=== PATIENT | female | born 1970 | race Caucasian/White ===

== ENCOUNTER 2024-04-20 09:19 | Day surgery (SDC) | payer OTHER ==
[~2024-04-20 09:19] MED LIST: Clindamycin in 0.9 % Sod Chlor 900 MG in Premix Bag 1 BAG IV SCH; EPINEPHrine 1 MG/ML 30 ML MDV IRR SCH; Lactated Ringers 1,000 ML IV SCH; Lidocaine 1%/Sod Bicarbonate in NS 8.4% 1 ML Syringe IDERM PRN; Sodium Chloride 0.9% 10 ML Syringe FLUSH PRN; Sodium Chloride 0.9% 10 ML Syringe FLUSH SCH
[2024-04-20] MEDS ORDERED: Sodium Chloride 0.9% 10 ML Syringe FLUSH SCH (09:30)
[2024-04-20] MEDS: Lactated Ringers 1,000 ML IV SCH (09:50)
[2024-04-20] MEDS ORDERED: Midazolam 1 MG/ML 2 ML SDV ONE (10:53)
[2024-04-20] MEDS ORDERED: Dexamethasone 4 MG/ML 5 ML MDV ONE (10:53)
[2024-04-20] MEDS ORDERED: Ondansetron 4 MG/2 ML SDV ONE (10:53)
[2024-04-20] MEDS ORDERED: Lidocaine 1% 5 ML VIAL ONE (10:53)
[2024-04-20] MEDS ORDERED: Propofol 200 MG/20 ML SDV ONE ×2 (10:53→12:00)
[2024-04-20] MEDS ORDERED: fentaNYL 250 MCG/5 ML SDV ONE (10:53)
[2024-04-20] MEDS ORDERED: EPINEPHrine 1 MG/ML SDV ONE (11:26)
[2024-04-20] MEDS ORDERED: Bupivacaine 0.25% 10 ML SDV ONE (12:02)
[2024-04-20] MEDS ORDERED: Lactated Ringers 1,000 ML ONE (12:02)
[2024-04-20] MEDS: Bupivacaine 0.25% 10 ML SDV ONE (12:30)
[2024-04-20] MEDS ORDERED: HYDROmorphone 0.5 MG/0.5 ML Syringe IVPUSH PRN (12:35)
[2024-04-20] MEDS ORDERED: fentaNYL 100 MCG/2 ML SDV IVPUSH PRN (12:35)
[2024-04-20] MEDS: Triamcinolone Acetonide 40 MG/ML 1 ML SDV ONE (12:44)
[2024-04-20] MEDS ORDERED: Ketorolac 30 MG/ML SDV ONE (12:45)
[2024-04-20 14:31] VITALS: BP 121/67; PULSE 73
[2024-04-20] MEDS: Clindamycin Phosphate in D5W 900 MG in Premix Bag 1 BAG IV ONE (14:34)
== END 2024-04-20 14:15 | disposition home or self-care (01) ==
LOC: JD.SDS 09:19
PROVIDERS: ATTEND Orthopaedic Surgery
DX: S83.282A Other tear of lateral meniscus, current injury, left knee, initial encounter (principal); S83.242A Other tear of medial meniscus, current injury, left knee, initial encounter; M22.42 Chondromalacia patellae, left knee; F41.8 Other specified anxiety disorders; Z79.899 Other long term (current) drug therapy; Z88.0 Allergy status to penicillin; X58.XXXA Exposure to other specified factors, initial encounter
CPT/HCPCS: 29880; J0171; J0665; J0736; J1100; J1885; J2250; J2405; J2704; J3010; J3301; J7120; 01400; J3490

== ENCOUNTER 2024-07-27 07:24 | Day surgery (SDC) | payer OTHER ==
[~2024-07-27 07:24] MED LIST changes: -Clindamycin in 0.9 % Sod Chlor 900 MG in Premix Bag 1 BAG IV SCH; -EPINEPHrine 1 MG/ML 30 ML MDV IRR SCH; +Lidocaine 1% 4 ML ONE; -Lidocaine 1%/Sod Bicarbonate in NS 8.4% 1 ML Syringe IDERM PRN; +Midazolam 1 MG/ML 2 ML SDV ONE; +propofoL 500 MG/50 ML 50 ML ONE
[2024-07-27] MEDS: Lactated Ringers 1,000 ML IV SCH (07:40)
[2024-07-27 10:15] VITALS: BP 116/73; PULSE 74
== END 2024-07-27 09:55 | disposition home or self-care (01) ==
LOC: JD.SDS 07:24
PROVIDERS: ATTEND Surgery
DX: R10.9 Unspecified abdominal pain (principal); K59.09 Other constipation; Z88.0 Allergy status to penicillin; Z79.899 Other long term (current) drug therapy
CPT/HCPCS: 00813; J2003; J2250; J2704; J7120

== ENCOUNTER 2025-01-08 06:38 | Day surgery (SDC) | payer BC, OTHER ==
[~2025-01-08 06:38] MED LIST changes: -Lidocaine 1% 4 ML ONE; -Midazolam 1 MG/ML 2 ML SDV ONE; -propofoL 500 MG/50 ML 50 ML ONE
[2025-01-08] MEDS: Lactated Ringers 1,000 ML IV SCH (06:50)
[2025-01-08] MEDS ORDERED: propofoL 500 MG/50 ML 50 ML ONE (07:00)
[2025-01-08 09:11] VITALS: BP 110/72; PULSE 72
== END 2025-01-08 09:05 | disposition home or self-care (01) ==
LOC: JD.SDS 06:38
PROVIDERS: ATTEND Surgery
DX: K59.09 Other constipation (principal); R10.13 Epigastric pain; R63.4 Abnormal weight loss; F41.8 Other specified anxiety disorders; Z88.0 Allergy status to penicillin; Z79.899 Other long term (current) drug therapy
CPT/HCPCS: 45378; J2003; J2704; J7120